=== PATIENT | female | born 1980 | race Two or more races ===

== ENCOUNTER 2019-02-01 14:25 | Emergency (ER) | payer BC ==
[~2019-02-01] VITALS: Ht 177.8 cm; Wt 113.4 kg
[2019-02-01 14:41] VITALS: BP 134/93
== END 2019-02-01 15:19 | disposition home or self-care (01) ==
LOC: ER 14:25
DX: S01.112A Laceration without foreign body of left eyelid and periocular area, initial encounter (principal); Z98.890 Other specified postprocedural states; W26.8XXA Contact with other sharp object(s), not elsewhere classified, initial encounter; Y93.89 Activity, other specified; Y92.89 Other specified places as the place of occurrence of the external cause; Y99.8 Other external cause status